=== PATIENT | female | born 1990 | race Hispanic/Latino ===

== ENCOUNTER 2016-10-09 11:40 | Outpatient (CLI) | payer OTHER ==
[2016-10-09 13:31] LABS: #Basophils 0.1 thou/uL (0.0-0.2); #Eosinphils 0.2 thou/uL (0.0-0.7); #Lymphocytes 2.2 thou/uL (1.20-3.40); #Monocytes 0.7 thou/uL (0.11-0.59); #Neutrophils 9.1 thou/uL (1.40-6.50); %Basophils 0.6 % (0.0-1.0); %Eosinophils 1.8 % (0.0-10.0); %Lymphocytes 18.1 % (21.0-51.0); %Monocytes 5.9 % (0.0-10.0); %Neutrophils 73.6 % (42.0-75.0); Hemoglobin 11.7 g/dL (12.0-16.0); Mean Corpuscular HGB CONC 34.3 g/dL (32.0-36.0); Mean Corpuscular Hemoglobin 30.9 pg (27.0-31.0); Mean Corpuscular Volume 90.1 fl (81.0-99.0); Platelet Count 249 thou/uL (130-400); RBC Distribution Width 12.3 % (11.5-14.5); Red Blood Cell (RBC) Count 3.78 mill/uL (4.20-5.40); White Blood Cell (WBC) Count 12.4 thou/uL (4.8-10.8)
[2016-10-09 17:22] LABS: HIV (1/2) Antibody/Antigen Non-Reactive (NonReactive)
== END 2016-10-09 11:41 | disposition home or self-care (01) ==
LOC: MADLABBHPM 11:40
PROVIDERS: ATTEND Family Medicine
DX: Z34.03 Encounter for supervision of normal first pregnancy, third trimester (principal)
CPT/HCPCS: 36415; 82950; 85025; 86592; 87389

== ENCOUNTER 2016-10-20 08:28 | Outpatient (CLI) | payer OTHER | END 2016-10-20 08:29 | disposition home or self-care (01) | LOC: MADLABBHPM 08:28 | PROVIDERS: ATTEND Family Medicine | DX: Z34.03 Encounter for supervision of normal first pregnancy, third trimester (principal) | CPT/HCPCS: 36415; 82951; 82952 ==